=== PATIENT | female | born 1955 | race Caucasian/White ===

== ENCOUNTER 2017-05-09 22:31 | Inpatient (IN) | payer BC, OTHER ==
[~2017-05-09] VITALS: Ht 162.6 cm; Wt 85.0 kg
[~2017-05-09 22:31] MED LIST: CIPR500T87 PO; HYDR-3240 PO; LEVOXYL PO; METR500T PO; ONDA4TAB7 PO; PARO10TA24 PO
[2017-05-09] MEDS ORDERED: SODIUM CHLORIDE 0.9% 1,000 ML IV ONE (22:49)
[2017-05-09] MEDS ORDERED: ONDANSETRON 2MG/ML, 2ML IVPush ONE (23:00)
[2017-05-09] MEDS ORDERED: MORPHINE SULFATE 4 MG/ML, 1ML IVPush PRN (23:00)
[2017-05-09] MEDS ORDERED: MORPHINE SULFATE 4 MG/ML, 1ML ONE (23:04)
[2017-05-09] MEDS ORDERED: ONDANSETRON 2MG/ML, 2ML ONE (23:04)
[2017-05-09] MEDS ORDERED: ACETAMINOPHEN 325 MG TABLET PO PRN (23:30)
[2017-05-09] MEDS ORDERED: ENALAPRILAT 1.25 MG/ML, 2ML IVPush PRN (23:30)
[2017-05-09] MEDS ORDERED: ONDANSETRON 2MG/ML, 2ML IVPush PRN (23:30)
[2017-05-09] MEDS ORDERED: BISACODYL 10 MG SUPP PR PRN (23:30)
[2017-05-09 23:42] LABS: ASPARTATE AMINO TRANSFERASE 29 U/L (15-37); BLOOD UREA NITROGEN 30 mg/dL (7-18)
[2017-05-09] MEDS ORDERED: LEVO112T4 PO (23:58)
[2017-05-10] VITALS (7 sets, daily range): BP systolic 128–146; BP diastolic 54–89
[2017-05-10 00:02] LABS: HEMATOCRIT 41.8 % (34.6-47.8); WHITE BLOOD COUNT 8.4 x10^3/uL (3.4-10)
[2017-05-10] MEDS ORDERED: ALPR0.5T10 SL (00:03)
[2017-05-10] MEDS ORDERED: LORA10TA3 PO (00:03)
[2017-05-10] MEDS ORDERED: CETI10TA32 PO (00:03)
[2017-05-10] MEDS ORDERED: METO-93 PO (00:03)
[2017-05-10] MEDS ORDERED: HYDR200T PO (00:03)
[2017-05-10] MEDS ORDERED: RANI150C PO (00:03)
[2017-05-10] MEDS ORDERED: VENL75TA PO (00:03)
[2017-05-10] MEDS ORDERED: SIMV5TAB5 PO (00:03)
[2017-05-10] MEDS: morphine SULFATE 10 MG/ML, 1ML IVPush PRN ×2 (01:48→05:22)
[2017-05-10] MEDS: SODIUM CHLORIDE 0.9% 1,000 ML IV SCH ×3 (02:00→18:06)
[2017-05-10] MEDS: SENNA/DOCUSATE TABLET PO SCH (09:00)
[2017-05-10] MEDS ORDERED: MIDAZOLAM 1 MG/ML, 2ML ONE (09:37)
[2017-05-10] MEDS ORDERED: FENTANYL PF 250 MCG/5ML ONE (09:37)
[2017-05-10] MEDS ORDERED: ROPIvacaine/PF 0.5%, 30 ML ONE (09:37)
[2017-05-10] MEDS ORDERED: ACETAMINOPHEN 325 MG TABLET PO PRN (10:30)
[2017-05-10] MEDS ORDERED: OXYcodone 5 MG/5 ML ORAL.SOL UDC PO PRN (10:30)
[2017-05-10] MEDS ORDERED: FENTANYL PF 100 MCG/2ML ONE (11:37)
[2017-05-10] MEDS ORDERED: ACETAMINOPHEN 325 MG TABLET ONE (11:37)
[2017-05-10] MEDS ORDERED: OXYcodone 5 MG/5 ML ORAL.SOL UDC ONE (11:38)
[2017-05-10] MEDS: FENTANYL PF 100 MCG/2ML IV PRN ×2 (11:40→11:53)
[2017-05-10] MEDS ORDERED: ENALAPRILAT 1.25 MG/ML, 2ML ONE (12:02)
[2017-05-10] MEDS ORDERED: HYDROmorphone 1 MG/ML, 1ML ONE (12:03)
[2017-05-10] MEDS: HYDROmorphone 1 MG/ML, 1ML IV PRN ×2 (12:08→12:19)
[2017-05-10] MEDS ORDERED: DEXAMETHASONE 4 MG/ML, 1ML ONE (16:27)
[2017-05-10] MEDS ORDERED: PROPOFOL 10 MG/ML, 20ML ONE (16:27)
[2017-05-10] MEDS ORDERED: CEFAZOLIN 1,000 MG ONE (16:27)
[2017-05-10] MEDS ORDERED: ONDANSETRON 2MG/ML, 2ML ONE (16:27)
[2017-05-10] MEDS: CEFAZOLIN PMX 2GM/50ML 50 ML IVPB SCH (18:06)
[2017-05-10] MEDS: OXYcodone/APAP 5/325MG TABLET PO PRN (18:07)
[2017-05-10] MEDS: SIMVASTATIN 5 MG TABLET PO SCH (22:04)
[2017-05-10] MEDS: HYDROXYCHLOROQUINE 200 MG TABLET PO SCH (22:05)
[2017-05-10] MEDS: DIPHENHYDRAMINE 50 MG CAPSULE PO PRN (22:05)
[2017-05-11] MEDS: CEFAZOLIN PMX 2GM/50ML 50 ML IVPB SCH (02:29)
[2017-05-11] MEDS: OXYcodone/APAP 5/325MG TABLET PO PRN ×5 (02:34→21:01)
[2017-05-11 04:14] VITALS: BP 113/62
[2017-05-11] MEDS: SODIUM CHLORIDE 0.9% 1,000 ML IV SCH ×3 (05:24→23:20)
[2017-05-11 07:01] VITALS: BP 134/73
[2017-05-11 07:09] LABS: BLOOD UREA NITROGEN 19 mg/dL (7-18)
[2017-05-11 07:11] LABS: HEMATOCRIT 33.7 % (34.6-47.8); HEMOGLOBIN 11.4 g/dL (11.7-16.4); WHITE BLOOD COUNT 7.1 x10^3/uL (3.4-10)
[2017-05-11] MEDS: HYDROXYCHLOROQUINE 200 MG TABLET PO SCH ×2 (08:45→21:01)
[2017-05-11] MEDS: SENNA/DOCUSATE TABLET PO SCH (08:45)
[2017-05-11] MEDS: VENLAFAXINE 75MG TABLET PO SCH (08:45)
[2017-05-11] MEDS: LORATADINE 10 MG TABLET PO SCH (08:45)
[2017-05-11] MEDS: LEVOTHYROXINE 112 MCG TABLET PO SCH (08:45)
[2017-05-11] MEDS: METOPROLOL SUCCINATE 50 MG TAB.ER.24H PO SCH (08:46)
[2017-05-11 14:18] VITALS: BP 129/75
[2017-05-11 18:49] VITALS: BP 119/65
[2017-05-11] MEDS: POLYETHYLENE GLYCOL 17 GM PACKET PO PRN (21:00)
[2017-05-11] MEDS: SIMVASTATIN 5 MG TABLET PO SCH (21:01)
[2017-05-11] MEDS: DIPHENHYDRAMINE 50 MG CAPSULE PO PRN (23:24)
[2017-05-12] MEDS: OXYcodone/APAP 5/325MG TABLET PO PRN ×6 (01:33→23:16)
[2017-05-12 02:15] VITALS: BP 168/93
[2017-05-12 05:59] LABS: HEMATOCRIT 36.4 % (34.6-47.8); HEMOGLOBIN 12.2 g/dL (11.7-16.4); WHITE BLOOD COUNT 7.6 x10^3/uL (3.4-10)
[2017-05-12 06:11] LABS: BLOOD UREA NITROGEN 22 mg/dL (7-18)
[2017-05-12 08:02] VITALS: BP 142/84
[2017-05-12] MEDS: VENLAFAXINE 75MG TABLET PO SCH (08:22)
[2017-05-12] MEDS: METOPROLOL SUCCINATE 50 MG TAB.ER.24H PO SCH (08:22)
[2017-05-12] MEDS: SENNA/DOCUSATE TABLET PO SCH (08:22)
[2017-05-12] MEDS: LORATADINE 10 MG TABLET PO SCH (08:22)
[2017-05-12] MEDS: HYDROXYCHLOROQUINE 200 MG TABLET PO SCH ×2 (08:22→21:15)
[2017-05-12] MEDS: LEVOTHYROXINE 112 MCG TABLET PO SCH (08:23)
[2017-05-12 11:42] LABS: HEMATOCRIT 33.8 % (34.6-47.8); HEMOGLOBIN 11.4 g/dL (11.7-16.4)
[2017-05-12 13:45] LABS: HIV 1&2 ANTIBODY SCREEN Nonreactive (Nonreactive); HIV-1 p24 ANTIGEN Nonreactive (Nonreactive)
[2017-05-12 14:39] VITALS: BP 159/59
[2017-05-12 17:32] LABS: ANA SCREEN NEGATIVE (Negative)
[2017-05-12 19:47] VITALS: BP 146/71
[2017-05-12] MEDS: SIMVASTATIN 5 MG TABLET PO SCH (21:15)
[2017-05-12] MEDS: POLYETHYLENE GLYCOL 17 GM PACKET PO PRN (21:15)
[2017-05-13 00:34] VITALS: BP 148/82
[2017-05-13 04:00] VITALS: BP 136/74
[2017-05-13] MEDS: OXYcodone/APAP 5/325MG TABLET PO PRN ×5 (04:03→21:14)
[2017-05-13 05:47] LABS: BLOOD UREA NITROGEN 19 mg/dL (7-18)
[2017-05-13 06:09] LABS: HEMOGLOBIN 11.4 g/dL (11.7-16.4); WHITE BLOOD COUNT 6.4 x10^3/uL (3.4-10)
[2017-05-13 07:13] VITALS: BP 159/77
[2017-05-13] MEDS: LORATADINE 10 MG TABLET PO SCH (08:06)
[2017-05-13] MEDS: HYDROXYCHLOROQUINE 200 MG TABLET PO SCH ×2 (08:06→20:36)
[2017-05-13] MEDS: SENNA/DOCUSATE TABLET PO SCH (08:06)
[2017-05-13] MEDS: VENLAFAXINE 75MG TABLET PO SCH (08:07)
[2017-05-13] MEDS: LEVOTHYROXINE 112 MCG TABLET PO SCH (08:07)
[2017-05-13] MEDS: METOPROLOL SUCCINATE 50 MG TAB.ER.24H PO SCH (08:07)
[2017-05-13 14:39] VITALS: BP 156/71
[2017-05-13 20:00] VITALS: BP 143/77
[2017-05-13] MEDS: SIMVASTATIN 5 MG TABLET PO SCH (20:36)
[2017-05-13] MEDS: POLYETHYLENE GLYCOL 17 GM PACKET PO PRN (20:36)
[2017-05-13] MEDS: DIPHENHYDRAMINE 50 MG CAPSULE PO PRN (21:14)
[2017-05-14 01:18] VITALS: BP 154/78
[2017-05-14] MEDS: OXYcodone/APAP 5/325MG TABLET PO PRN ×3 (03:25→12:12)
[2017-05-14 05:38] LABS: HEMATOCRIT 35.1 % (34.6-47.8); HEMOGLOBIN 11.8 g/dL (11.7-16.4); WHITE BLOOD COUNT 5.8 x10^3/uL (3.4-10)
[2017-05-14 05:40] LABS: BLOOD UREA NITROGEN 25 mg/dL (7-18)
[2017-05-14 07:37] VITALS: BP 139/77
[2017-05-14] MEDS: HYDROXYCHLOROQUINE 200 MG TABLET PO SCH (08:01)
[2017-05-14] MEDS: LEVOTHYROXINE 112 MCG TABLET PO SCH (08:02)
[2017-05-14] MEDS: METOPROLOL SUCCINATE 50 MG TAB.ER.24H PO SCH (08:02)
[2017-05-14] MEDS: SENNA/DOCUSATE TABLET PO SCH (08:02)
[2017-05-14] MEDS: LORATADINE 10 MG TABLET PO SCH (08:02)
[2017-05-14] MEDS: VENLAFAXINE 75MG TABLET PO SCH (08:02)
[2017-05-14 10:06] LABS: HEPATITIS C PCR QUANTITATION HCV Not Detected IU/mL (.)
[2017-05-14] MEDS ORDERED: OXYC1TAB7 PO (11:01)
[2017-05-14 13:45] VITALS: BP 158/88
[2017-05-16 14:11] LABS: UR ALBUMIN 15.6 % (.); UR ALPHA-1-GLOBULIN 1.3 % (.); UR ALPHA-2-GLOBULIN 10.3 % (.); UR BETA GLOBULIN 30.7 % (.); UR GAMMA GLOBULIN 42.1 % (.); UR M-SPIKE % Not Observed % (Not Observed)
[2017-05-16 15:06] LABS: A/G RATIO 1.2 (0.7-1.7); ALBUMIN 3.5 g/dL (2.9-4.4); ALPHA-1-GLOBULIN 0.3 g/dL (0.0-0.4); BETA GLOBULIN 0.9 g/dL (0.7-1.3); GAMMA GLOBULIN 1.1 g/dL (0.4-1.8); PROTEIN TOTAL 6.5 g/dL (6.0-8.5)
== END 2017-05-14 13:40 | disposition home or self-care (01) | DRG 493 ==
LOC: ED 23:00 → EDIP 23:19 → 4NOR 05-10 00:39
PROVIDERS: ADMIT Internal Medicine; ATTEND Internal Medicine
PROC: 2W3QX1Z Immobilization of Right Lower Leg using Splint (ICD-10-PCS; 2017-05-09)
PROC: 0QSJ04Z Reposition Right Fibula with Internal Fixation Device, Open Approach (ICD-10-PCS; 2017-05-10)
PROC: 0QSG04Z Reposition Right Tibia with Internal Fixation Device, Open Approach (ICD-10-PCS; principal; 2017-05-10 10:00)
DX: S82.841A Displaced bimalleolar fracture of right lower leg, initial encounter for closed fracture (principal); N13.30 Unspecified hydronephrosis; D69.6 Thrombocytopenia, unspecified; W10.8XXA Fall (on) (from) other stairs and steps, initial encounter; I10 Essential (primary) hypertension; M35.00 Sjogren syndrome, unspecified; E03.9 Hypothyroidism, unspecified; F17.210 Nicotine dependence, cigarettes, uncomplicated; F41.9 Anxiety disorder, unspecified; R77.1 Abnormality of globulin; S96.812A Strain of other specified muscles and tendons at ankle and foot level, left foot, initial encounter; Y93.01 Activity, walking, marching and hiking; L50.8 Other urticaria; S93.492A Sprain of other ligament of left ankle, initial encounter; Z96.641 Presence of right artificial hip joint; Z90.89 Acquired absence of other organs; Z90.722 Acquired absence of ovaries, bilateral; Z90.710 Acquired absence of both cervix and uterus; Y92.098 Other place in other non-institutional residence as the place of occurrence of the external cause; Y99.8 Other external cause status; Z81.8 Family history of other mental and behavioral disorders; Z80.8 Family history of malignant neoplasm of other organs or systems
CPT/HCPCS: 29515; 36415; 76000; 76700; 80048; 80053; 82607; 82746; 84155; 84156; 84165; 84166; 85025; 85610; 85651; 85730; 86038; 86703; 86850; 86900; 87522; 87899; 93005; 96361; 96374; 96375; C1713; J0690; J1100; J1170; J2250; J2405; J2704; J2795; J3010; G0435; J2270; J7030